=== PATIENT | male | born 1990 | race African-American/Black ===

== ENCOUNTER 2016-03-20 16:33 | Emergency (ER) | payer BC ==
[2016-03-20] MEDS ORDERED: SODIUM CHLORIDE 0.9% 1,000 ML ONE (17:20)
[2016-03-20] MEDS ORDERED: ONDANSETRON 4 MG VIAL ONE (17:20)
== END 2016-03-20 18:58 | disposition home or self-care (01) ==
LOC: ER 16:33
DX: R11.2 Nausea with vomiting, unspecified (principal)
CPT/HCPCS: 36415; 74022; 80053; 81001; 83690; 85025; 96361; 96374